=== PATIENT | female | born 1975 | race Caucasian/White ===

== ENCOUNTER → 2023-11-29 17:36 | Outpatient (REF) | payer BC, SELFPAY | LOC: WDC 17:36 | PROVIDERS: ATTENDING PHYSICIAN Obstetrics & Gynecology | DX: Z12.31 Encounter for screening mammogram for malignant neoplasm of breast (principal) | CPT/HCPCS: 77063; 77067 ==

== ENCOUNTER → 2024-12-26 13:49 | Outpatient (REF) | payer OTHER, SELFPAY | LOC: WDC 13:49 | PROVIDERS: ATTENDING PHYSICIAN Obstetrics & Gynecology | DX: Z12.31 Encounter for screening mammogram for malignant neoplasm of breast (principal) | CPT/HCPCS: 77063; 77067 ==